=== PATIENT | female | born 1970 | race Caucasian/White ===

== ENCOUNTER 2019-01-29 18:17 | Inpatient (IN) | payer MEDICAID, OTHER ==
[~2019-01-29] VITALS: Ht 152.4 cm; Wt 46.3 kg
[~2019-01-29 18:17] MED LIST: CARB100T4; DOCU-150; FERR-63; GLYC1TAB11; LEVO75TA7; MULT-876; OLAN5TAB3; VITAMIN C
[2019-01-29] MEDS ORDERED: ONDANSETRON HCL 4MG/2ML INJ IV STA (23:01)
[2019-01-29] MEDS ORDERED: SODIUM CHLORIDE 0.9% 1,000 ML IV ONE (23:01)
[2019-01-29] MEDS ORDERED: MIDAZOLAM HCL 2 MG/2 ML VIAL IV ONE (23:15)
[2019-01-29 23:39] LABS: BASOPHILS % 0.9 % (0.0-2.0); EOSINOPHILS % 3.5 % (0.0-5.0); HEMATOCRIT. 39.3 % (36.0-48.0); HEMOGLOBIN. 13.2 g/dL (12.0-16.0); LYMPHOCYTES % 12.9 % (20.0-50.0); MEAN CORPUSCULAR HEMOGLOBIN 32.3 pg (28.0-32.0); MEAN CORPUSCULAR VOLUME 96.5 fL (81.0-99.0); MEAN PLATELET VOLUME 9.6 fl (7.4-10.4); MONOCYTES % 6.1 % (2.0-8.0); NEUTROPHILS % 76.6 % (40.0-76.0); PLATELET 288 x1000/uL (130-400); RED BLOOD CELL COUNT 4.07 mill/uL (4.2-5.4); RED CELL DISTRIBUTION WIDTH 13.8 % (11.6-14.6)
[2019-01-29 23:46] LABS: CHLORIDE 108 mEq/L (98-107)
[2019-01-30 00:02] LABS: HCG SCREEN NEGATIVE
[2019-01-30 00:45] LABS: CLARITY URINE CLEAR (CLEAR); COLOR URINE DARK YELLOW (YELLOW); KETONES URINE NEGATIVE (NEGATIVE); LEUKOCYTE ESTERASE URINE TRACE (NEGATIVE); NITRITE URINE NEGATIVE (NEGATIVE); OCCULT BLOOD URINE 2+ (NEGATIVE); PH URINE 6.5 (4.5-8.0); PROTEIN URINE TRACE (NEGATIVE); UROBILINOGEN URINE 0.2 E.U./dL (0.2-1.0)
[2019-01-30] MEDS ORDERED: NA PHOS,M-B/NA PHOS,DI-BA ENEMA 118ML PR ONE ×2 (02:00→10:45)
[2019-01-30] MEDS ORDERED: WARF6TAB22 PO (03:20)
[2019-01-30] MEDS ORDERED: WARF7.5T22 PO (03:20)
[2019-01-30] MEDS ORDERED: CLAR10 PO (03:20)
[2019-01-30 04:42] VITALS: BP 102/67
[2019-01-30] MEDS ORDERED: LACTULOSE 20G/30ML UDC PO PRN (05:30)
[2019-01-30] MEDS: LEVOTHYROXINE SODIUM 75MCG TABLET PO SCH (06:43)
[2019-01-30 08:00] VITALS: BP 121/70
[2019-01-30] MEDS ORDERED: ENOXAPARIN 30MG/0.3ML SYR SUBCUT SCH (09:00)
[2019-01-30 09:16] LABS: BASOPHILS % 1.3 % (0.0-2.0); EOSINOPHILS % 4.7 % (0.0-5.0); HEMATOCRIT. 33.2 % (36.0-48.0); HEMOGLOBIN. 11.1 g/dL (12.0-16.0); LYMPHOCYTES % 16.5 % (20.0-50.0); MEAN CORPUSCULAR HEMOGLOBIN 32.4 pg (28.0-32.0); MEAN CORPUSCULAR VOLUME 96.9 fL (81.0-99.0); MEAN PLATELET VOLUME 9.5 fl (7.4-10.4); MONOCYTES % 6.8 % (2.0-8.0); NEUTROPHILS % 70.7 % (40.0-76.0); PLATELET 241 x1000/uL (130-400); RED BLOOD CELL COUNT 3.42 mill/uL (4.2-5.4); RED CELL DISTRIBUTION WIDTH 13.9 % (11.6-14.6)
[2019-01-30] MEDS: DOCUSATE SODIUM 100MG CAPSULE PO SCH ×2 (09:23→17:00)
[2019-01-30 09:25] LABS: INR 3.4; PARTIAL THROMBOPLASTIN TIME 48.3 sec (23.4-31.0); PROTHROMBIN TIME 33.3 sec (9.6-11.0)
[2019-01-30] MEDS: SODIUM CHLORIDE 0.9% 1,000 ML IV SCH (09:25)
[2019-01-30 10:00] LABS: CHLORIDE 114 mEq/L (98-107)
[2019-01-30 10:12] LABS: LDL CHOLESTEROL 61 mg/dL (5-100)
[2019-01-30 10:14] LABS: HDL CHOLESTEROL 41 mg/dL (40-59)
[2019-01-30 12:00] VITALS: BP 117/72
[2019-01-30] MEDS: LACTULOSE 20G/30ML UDC PO SCH ×3 (14:00→22:00)
[2019-01-30] MEDS: MULTIVITAMINS,THER W-MINERALS TABLET PO SCH (14:22)
[2019-01-30 16:00] VITALS: BP 116/55
[2019-01-30 20:00] VITALS: BP 118/67
[2019-01-31] VITALS: BP 112/56
[2019-01-31] MEDS: SODIUM CHLORIDE 0.9% 1,000 ML IV SCH (03:13)
[2019-01-31 04:00] VITALS: BP 107/53
[2019-01-31] MEDS: LEVOTHYROXINE SODIUM 75MCG TABLET PO SCH (06:55)
[2019-01-31] MEDS: LACTULOSE 20G/30ML UDC PO SCH ×2 (06:55→13:18)
[2019-01-31 07:14] LABS: INR 2.1; PROTHROMBIN TIME 21.2 sec (9.6-11.0)
[2019-01-31 07:36] LABS: FOLIC ACID (FOLATE) SERUM >20 ng/mL ng/mL (>5.38)
[2019-01-31 07:44] LABS: TOTAL IRON BINDING CAPACITY 175 ug/dL (250-450)
[2019-01-31 07:48] LABS: VITAMIN B12 SERUM 913 pg/mL (211-911)
[2019-01-31 07:55] LABS: FERRITIN 25 ng/mL (10-291)
[2019-01-31 08:00] VITALS: BP 122/68
[2019-01-31] MEDS: MULTIVITAMINS,THER W-MINERALS TABLET PO SCH (09:30)
[2019-01-31] MEDS: DOCUSATE SODIUM 100MG CAPSULE PO SCH (09:30)
[2019-01-31] MEDS: LORATADINE 10MG TABLET PO SCH (09:40)
[2019-01-31 11:41] LABS: HEMATOCRIT. 33.3 % (36.0-48.0); HEMOGLOBIN. 11.1 g/dL (12.0-16.0); MEAN CORPUSCULAR HEMOGLOBIN 31.9 pg (28.0-32.0); MEAN CORPUSCULAR VOLUME 95.9 fL (81.0-99.0); MEAN PLATELET VOLUME 9.5 fl (7.4-10.4); PLATELET 220 x1000/uL (130-400); RED BLOOD CELL COUNT 3.47 mill/uL (4.2-5.4); RED CELL DISTRIBUTION WIDTH 13.8 % (11.6-14.6)
[2019-01-31 12:00] VITALS: BP 128/67
[2019-01-31 12:22] LABS: CHLORIDE 115 mEq/L (98-107)
[2019-01-31 12:28] LABS: PHOSPHORUS 1.9 mg/dL (2.5-4.9)
[2019-01-31 12:58] LABS: PLATELET ESTIMATE NORMAL
[2019-01-31] MEDS: DOCUSATE SODIUM SUGAR FREE 100MG/10ML UDC NG SCH ×2 (13:18→18:36)
[2019-01-31] MEDS: SODIUM CHLORIDE 0.45% 1,000 ML IV SCH (15:04)
[2019-01-31] MEDS ORDERED: POTASSIUM PHOS,M-BASIC-D-BASIC 15 MMOL in DEXT 5% WATER 245 ML IV NR ×2 (15:30→18:15)
[2019-01-31 16:00] VITALS: BP 127/74
[2019-01-31] MEDS ORDERED: WARFARIN SODIUM 5MG TABLET PO SCH (18:00)
[2019-01-31] MEDS: CARBAMAZEPINE 200MG TABLET PO SCH (18:33)
[2019-01-31 20:00] VITALS: BP 100/53
[2019-02-01] VITALS: BP 111/63
[2019-02-01] MEDS: LACTULOSE 20G/30ML UDC PO SCH ×4 (00:51→21:39)
[2019-02-01 04:00] VITALS: BP 118/61
[2019-02-01] MEDS: LEVOTHYROXINE SODIUM 75MCG TABLET PO SCH (06:49)
[2019-02-01 07:23] LABS: BASOPHILS % 0.7 % (0.0-2.0); EOSINOPHILS % 2.5 % (0.0-5.0); HEMATOCRIT. 31.5 % (36.0-48.0); HEMOGLOBIN. 10.7 g/dL (12.0-16.0); LYMPHOCYTES % 20.3 % (20.0-50.0); MEAN CORPUSCULAR HEMOGLOBIN 32.6 pg (28.0-32.0); MEAN CORPUSCULAR VOLUME 96.4 fL (81.0-99.0); MEAN PLATELET VOLUME 9.9 fl (7.4-10.4); MONOCYTES % 7.1 % (2.0-8.0); NEUTROPHILS % 69.4 % (40.0-76.0); PLATELET 209 x1000/uL (130-400); RED BLOOD CELL COUNT 3.27 mill/uL (4.2-5.4); RED CELL DISTRIBUTION WIDTH 13.6 % (11.6-14.6)
[2019-02-01 07:36] LABS: CHLORIDE 112 mEq/L (98-107)
[2019-02-01 07:44] LABS: PHOSPHORUS 2.1 mg/dL (2.5-4.9)
[2019-02-01 07:55] LABS: INR 1.4; PROTHROMBIN TIME 14.6 sec (9.6-11.0)
[2019-02-01 08:54] VITALS: BP 144/71
[2019-02-01] MEDS ORDERED: CARBAMAZEPINE 200MG TABLET PO SCH (09:00)
[2019-02-01] MEDS: DOCUSATE SODIUM SUGAR FREE 100MG/10ML UDC NG SCH ×2 (09:06→18:03)
[2019-02-01] MEDS: LORATADINE 10MG TABLET PO SCH (09:06)
[2019-02-01] MEDS: MULTIVITAMINS,THER W-MINERALS TABLET PO SCH (09:06)
[2019-02-01] MEDS: CARBAMAZEPINE 200MG TABLET PO SCH ×2 (09:06→18:06)
[2019-02-01] MEDS ORDERED: POTASSIUM PHOS,M-BASIC-D-BASIC 15 MMOL in DEXT 5% WATER 245 ML IV SCH (11:00)
[2019-02-01] MEDS: SODIUM CHLORIDE 0.45% 1,000 ML IV SCH (11:29)
[2019-02-01 12:00] VITALS: BP 135/71
[2019-02-01 16:00] VITALS: BP 133/68
[2019-02-01] MEDS ORDERED: WARFARIN SODIUM 7.5MG TABLET PO NR (18:00)
[2019-02-01 20:00] VITALS: BP 117/74
[2019-02-02] VITALS: BP 120/70
[2019-02-02 04:00] VITALS: BP 116/50
[2019-02-02] MEDS: SODIUM CHLORIDE 0.45% 1,000 ML IV SCH (05:44)
[2019-02-02 06:17] LABS: BASOPHILS % 0.8 % (0.0-2.0); EOSINOPHILS % 2.7 % (0.0-5.0); HEMATOCRIT. 31.8 % (36.0-48.0); HEMOGLOBIN. 10.9 g/dL (12.0-16.0); LYMPHOCYTES % 12.4 % (20.0-50.0); MEAN CORPUSCULAR HEMOGLOBIN 32.4 pg (28.0-32.0); MEAN CORPUSCULAR VOLUME 94.5 fL (81.0-99.0); MONOCYTES % 6.6 % (2.0-8.0); NEUTROPHILS % 77.5 % (40.0-76.0); PLATELET 199 x1000/uL (130-400); RED BLOOD CELL COUNT 3.37 mill/uL (4.2-5.4); RED CELL DISTRIBUTION WIDTH 13.4 % (11.6-14.6)
[2019-02-02 06:21] LABS: INR 1.9
[2019-02-02 06:24] LABS: CHLORIDE 110 mEq/L (98-107)
[2019-02-02 06:30] LABS: PHOSPHORUS 2.1 mg/dL (2.5-4.9)
[2019-02-02] MEDS: LEVOTHYROXINE SODIUM 75MCG TABLET PO SCH (06:37)
[2019-02-02] MEDS: LACTULOSE 20G/30ML UDC PO SCH ×2 (06:37→15:27)
[2019-02-02 08:00] VITALS: BP 103/55
[2019-02-02] MEDS: DOCUSATE SODIUM SUGAR FREE 100MG/10ML UDC NG SCH ×2 (08:52→17:41)
[2019-02-02] MEDS: CARBAMAZEPINE 200MG TABLET PO SCH ×2 (08:53→17:42)
[2019-02-02] MEDS: LORATADINE 10MG TABLET PO SCH (08:53)
[2019-02-02] MEDS: MULTIVITAMINS,THER W-MINERALS TABLET PO SCH (08:53)
[2019-02-02 12:00] VITALS: BP 115/56
[2019-02-02] MEDS ORDERED: POLY119P2 MT (12:07)
[2019-02-02 16:00] VITALS: BP 115/52
[2019-02-02 17:53] VITALS: BP 125/67
[2019-02-02] MEDS ORDERED: WARFARIN SODIUM 5MG TABLET PO NR (18:00)
== END 2019-02-02 19:16 | disposition home or self-care (01) | DRG 247 ==
LOC: ER 18:20 → EDBEDREQTM 01-30 03:01 → EDBEDREQ 01-30 03:01 → ENRESERV 01-30 03:43 → 6EST 01-30 04:13
PROVIDERS: ADMIT Internal Medicine; ATTEND Internal Medicine
DX: K56.41 Fecal impaction (principal); N17.9 Acute kidney failure, unspecified; E87.0 Hyperosmolality and hypernatremia; E44.1 Mild protein-calorie malnutrition; E83.39 Other disorders of phosphorus metabolism; E83.42 Hypomagnesemia; E03.9 Hypothyroidism, unspecified; G40.909 Epilepsy, unspecified, not intractable, without status epilepticus; F79 Unspecified intellectual disabilities; D64.9 Anemia, unspecified; R00.0 Tachycardia, unspecified; R31.9 Hematuria, unspecified; G80.9 Cerebral palsy, unspecified; R33.8 Other retention of urine; R79.1 Abnormal coagulation profile; Z79.01 Long term (current) use of anticoagulants; Z86.718 Personal history of other venous thrombosis and embolism; Z82.49 Family history of ischemic heart disease and other diseases of the circulatory system; Z79.899 Other long term (current) drug therapy
CPT/HCPCS: 36415; 71045; 74018; 74176; 80048; 80053; 80061; 81003; 82270; 82607; 82728; 82746; 83540; 83550; 83605; 83735; 84100; 84443; 84703; 85025; 92610; 93970; 96361; 96374; 96375; 99285; J1650; J2250; J2405; J3490; J7030; J7060; A4315

== ENCOUNTER 2019-03-06 20:01 | Inpatient (IN) | payer MEDICAID, OTHER ==
[~2019-03-06] VITALS: Ht 160 cm; Wt 46.8 kg
[~2019-03-06 20:01] MED LIST changes: -CARB100T4; +CLAR10 PO; -FERR-63; -GLYC1TAB11; -OLAN5TAB3; +POLY119P2 MT; +WARF6TAB22 PO
[2019-03-06] MEDS ORDERED: ONDANSETRON HCL 4MG/2ML INJ IV STA (21:17)
[2019-03-06] MEDS ORDERED: SODIUM CHLORIDE 0.9% 1,000 ML IV ONE (21:17)
[2019-03-06] MEDS ORDERED: NA PHOS,M-B/NA PHOS,DI-BA ENEMA 118ML PR ONE (22:45)
[2019-03-06 22:59] LABS: CLARITY URINE TURBID (CLEAR); COLOR URINE DARK YELLOW (YELLOW); KETONES URINE TRACE (NEGATIVE); LEUKOCYTE ESTERASE URINE TRACE (NEGATIVE); NITRITE URINE NEGATIVE (NEGATIVE); OCCULT BLOOD URINE NEGATIVE (NEGATIVE); PH URINE 6.5 (4.5-8.0); PROTEIN URINE TRACE (NEGATIVE); SPECIFIC GRAVITY URINE 1.023 (1.005-1.030)
[2019-03-06 23:01] LABS: BASOPHILS % 0.7 % (0.0-2.0); HEMOGLOBIN. 12.3 g/dL (12.0-16.0); LYMPHOCYTES % 7.6 % (20.0-50.0); MEAN CORPUSCULAR HEMOGLOBIN 31.7 pg (28.0-32.0); MEAN CORPUSCULAR VOLUME 95.6 fL (81.0-99.0); MEAN PLATELET VOLUME 9.8 fl (7.4-10.4); NEUTROPHILS % 86.7 % (40.0-76.0); PLATELET 373 x1000/uL (130-400); RED BLOOD CELL COUNT 3.86 mill/uL (4.2-5.4); RED CELL DISTRIBUTION WIDTH 13.6 % (11.6-14.6)
[2019-03-06 23:04] LABS: CHLORIDE 105 mEq/L (98-107)
[2019-03-07 03:00] VITALS: BP 124/84
[2019-03-07] MEDS ORDERED: TOPUD PO (04:12)
[2019-03-07] MEDS ORDERED: LEVO75TA PO (04:12)
[2019-03-07] MEDS ORDERED: WARF7.5T22 PO (04:12)
[2019-03-07] MEDS ORDERED: OLAN5TAB3 PO (04:12)
[2019-03-07] MEDS ORDERED: DIPH25CA83 PO (04:12)
[2019-03-07] MEDS ORDERED: GLYC1TAB11 PO (04:12)
[2019-03-07] MEDS ORDERED: D-ME473S8 MT (04:12)
[2019-03-07] MEDS ORDERED: FERR-54 PO (04:12)
[2019-03-07] MEDS ORDERED: CARB100T4 PO (04:12)
[2019-03-07] MEDS ORDERED: MOM MT (04:12)
[2019-03-07] MEDS ORDERED: ONDA4TAB5 PO (04:12)
[2019-03-07 05:07] VITALS: BP 124/84
[2019-03-07 08:00] VITALS: BP 125/60
[2019-03-07] MEDS ORDERED: BISACODYL 10MG SUPP PR PRN (08:00)
[2019-03-07] MEDS ORDERED: ONDANSETRON HCL 4MG/2ML INJ IV PRN (08:00)
[2019-03-07] MEDS: SODIUM CHLORIDE 0.9% 1,000 ML IV SCH ×2 (08:00→21:20)
[2019-03-07] MEDS ORDERED: SORBITOL 70% SOLN 30ML PO NR (08:00)
[2019-03-07 12:00] VITALS: BP 148/87
[2019-03-07 16:00] VITALS: BP 120/62
[2019-03-07 20:00] VITALS: BP 112/50
[2019-03-07 21:15] LABS: HEMATOCRIT 28.9 % (36.0-48.0); HEMOGLOBIN 9.7 g/dL (12.0-16.0)
[2019-03-08] VITALS: BP 129/83
[2019-03-08 04:00] VITALS: BP 113/61
[2019-03-08] MEDS: SODIUM CHLORIDE 0.9% 1,000 ML IV SCH (05:13)
[2019-03-08 08:00] VITALS: BP 103/60
[2019-03-08] MEDS: DEXT 5%/0.45% NACL 1000ML 1,000 ML IV SCH (12:45)
[2019-03-08 16:00] VITALS: BP 99/67
[2019-03-08 16:27] LABS: CHLORIDE 114 mEq/L (98-107)
[2019-03-08 16:35] LABS: INR 2.1; PROTHROMBIN TIME 21.3 sec (9.6-11.0)
[2019-03-08 17:10] LABS: BASOPHILS % 1.2 % (0.0-2.0); EOSINOPHILS % 0.9 % (0.0-5.0); HEMATOCRIT. 31.3 % (36.0-48.0); HEMOGLOBIN. 10.4 g/dL (12.0-16.0); LYMPHOCYTES % 24.2 % (20.0-50.0); MEAN CORPUSCULAR HEMOGLOBIN 32.3 pg (28.0-32.0); MEAN CORPUSCULAR VOLUME 96.8 fL (81.0-99.0); MEAN PLATELET VOLUME 9.1 fl (7.4-10.4); MONOCYTES % 7.5 % (2.0-8.0); NEUTROPHILS % 66.2 % (40.0-76.0); PLATELET 297 x1000/uL (130-400); RED BLOOD CELL COUNT 3.23 mill/uL (4.2-5.4); RED CELL DISTRIBUTION WIDTH 13.6 % (11.6-14.6)
[2019-03-08] MEDS: OLANZAPINE 5MG TABLET PO SCH (18:30)
[2019-03-08] MEDS: ACETAMINOPHEN 325MG TABLET PO PRN (18:31)
[2019-03-08] MEDS ORDERED: SORBITOL 70% SOLN 30ML PO NR (18:45)
[2019-03-08 20:00] VITALS: BP 108/76
[2019-03-08] MEDS: GLYCOPYRROLATE 1MG TABLET PO SCH (20:53)
[2019-03-08] MEDS: CARBAMAZEPINE 100MG TABLET CHEW PO SCH (20:53)
[2019-03-09] VITALS (7 sets, daily range): BP systolic 119–172; BP diastolic 74–113
[2019-03-09] MEDS: DEXT 5%/0.45% NACL 1000ML 1,000 ML IV SCH ×2 (04:13→16:29)
[2019-03-09] MEDS: LEVOTHYROXINE SODIUM 75MCG TABLET PO SCH (07:13)
[2019-03-09 07:24] LABS: HEMATOCRIT. 35.9 % (36.0-48.0); HEMOGLOBIN. 11.8 g/dL (12.0-16.0); MEAN CORPUSCULAR HEMOGLOBIN 31.7 pg (28.0-32.0); MEAN CORPUSCULAR VOLUME 96.2 fL (81.0-99.0); MEAN PLATELET VOLUME 9.9 fl (7.4-10.4); PLATELET 453 x1000/uL (130-400); RED BLOOD CELL COUNT 3.73 mill/uL (4.2-5.4); RED CELL DISTRIBUTION WIDTH 13.7 % (11.6-14.6)
[2019-03-09 07:34] LABS: CHLORIDE 112 mEq/L (98-107)
[2019-03-09] MEDS: MORPHINE SULFATE 2 MG/ML CPJ (NOT FOR IM USE) IV PRN (08:42)
[2019-03-09] MEDS ORDERED: POLYETHYLENE GLYCOL 3350 (17GM) 1 DOSE PACK PO SCH (09:00)
[2019-03-09] MEDS: OLANZAPINE 5MG TABLET PO SCH ×3 (09:00→16:28)
[2019-03-09] MEDS: GLYCOPYRROLATE 1MG TABLET PO SCH ×2 (09:00→21:00)
[2019-03-09] MEDS: LORATADINE 10MG TABLET PO SCH (09:00)
[2019-03-09] MEDS: DOCUSATE SODIUM 250MG CAPSULE PO SCH (09:00)
[2019-03-09] MEDS: CARBAMAZEPINE 100MG TABLET CHEW PO SCH (09:00)
[2019-03-09] MEDS: PIPERACILLIN/TAZOBACTAM 3.375 G in DEXT 5% WATER 100 ML IV SCH ×3 (10:19→23:24)
[2019-03-09 13:04] LABS: NUCLEATED RED BLOOD CELLS 1 /100 WBC
[2019-03-09 13:05] LABS: PLATELET ESTIMATE SLIGHTLY INCREASED
[2019-03-09] MEDS ORDERED: NA PHOS,M-B/NA PHOS,DI-BA ENEMA 118ML PR NR (16:00)
[2019-03-09] MEDS ORDERED: PHYTONADIONE 10 MG in DEXTROSE 5% WATER 49 ML IV ONE (17:00)
[2019-03-09] MEDS: PANTOPRAZOLE SODIUM 40 MG/VIAL IV SCH (17:45)
[2019-03-09] MEDS ORDERED: CARBAMAZEPINE 100 MG/5 ML PO SCH (23:00)
[2019-03-09] MEDS: CARBAMAZEPINE 200MG/10ML UDC PO SCH (23:26)
[2019-03-10] VITALS (11 sets, daily range): BP systolic 105–131; BP diastolic 67–88
[2019-03-10] MEDS: PIPERACILLIN/TAZOBACTAM 3.375 G in DEXT 5% WATER 100 ML IV SCH ×4 (03:18→21:24)
[2019-03-10] MEDS: OLANZAPINE 5MG TABLET PO SCH ×3 (08:35→17:22)
[2019-03-10] MEDS: DEXT 5%/0.45% NACL 1000ML 1,000 ML IV SCH ×2 (08:35→17:23)
[2019-03-10] MEDS: DOCUSATE SODIUM 250MG CAPSULE PO SCH (08:35)
[2019-03-10] MEDS: GLYCOPYRROLATE 1MG TABLET PO SCH ×2 (08:36→22:26)
[2019-03-10] MEDS: PANTOPRAZOLE SODIUM 40 MG/VIAL IV SCH ×2 (08:36→17:15)
[2019-03-10] MEDS: LEVOTHYROXINE SODIUM 75MCG TABLET PO SCH (08:36)
[2019-03-10] MEDS: LORATADINE 10MG TABLET PO SCH (08:36)
[2019-03-10] MEDS ORDERED: SORBITOL 70% SOLN 30ML PO NR (10:00)
[2019-03-10] MEDS ORDERED: MINERAL OIL ENEMA 133ML PR NR ×2 (10:15→22:00)
[2019-03-10 10:27] LABS: BASOPHILS % 0.6 % (0.0-2.0); EOSINOPHILS % 0.7 % (0.0-5.0); HEMATOCRIT. 30.8 % (36.0-48.0); HEMOGLOBIN. 10.6 g/dL (12.0-16.0); LYMPHOCYTES % 11.6 % (20.0-50.0); MEAN CORPUSCULAR HEMOGLOBIN 32.8 pg (28.0-32.0); MEAN CORPUSCULAR VOLUME 94.9 fL (81.0-99.0); MONOCYTES % 8.4 % (2.0-8.0); NEUTROPHILS % 78.7 % (40.0-76.0); PLATELET 298 x1000/uL (130-400); RED BLOOD CELL COUNT 3.24 mill/uL (4.2-5.4); RED CELL DISTRIBUTION WIDTH 13.3 % (11.6-14.6)
[2019-03-10 10:35] LABS: INR 1.1
[2019-03-10 11:19] LABS: CHLORIDE 107 mEq/L (98-107)
[2019-03-10] MEDS ORDERED: POTASSIUM CHLORIDE INJ 40 MEQ in DEXT 5% WATER 500 ML IV SCH (13:00)
[2019-03-10] MEDS: CARBAMAZEPINE 200MG/10ML UDC PO SCH ×2 (14:03→22:25)
[2019-03-10] MEDS ORDERED: POTASSIUM CHLORIDE INJ 40 MEQ in DEXT 5% WATER 500 ML IV NR (21:00)
[2019-03-10] MEDS ORDERED: NACL IV SCH (22:00)
[2019-03-10] MEDS ORDERED: POTASSIUM ACETATE IV SCH (22:00)
[2019-03-10] MEDS ORDERED: DEXT IV SCH (22:00)
[2019-03-10] MEDS: LACTULOSE 20G/30ML UDC PO SCH (22:25)
[2019-03-10] MEDS ORDERED: MAGNESIUM CITRATE 300ML SOLUTION PO NR (23:00)
[2019-03-11] VITALS (7 sets, daily range): BP systolic 119–144; BP diastolic 46–93
[2019-03-11] MEDS ORDERED: DEXT IV SCH (01:30)
[2019-03-11] MEDS ORDERED: NACL IV SCH (01:30)
[2019-03-11] MEDS ORDERED: POTASSIUM ACETATE IV SCH (01:30)
[2019-03-11] MEDS: PIPERACILLIN/TAZOBACTAM 3.375 G in DEXT 5% WATER 100 ML IV SCH ×4 (03:00→21:16)
[2019-03-11] MEDS: LACTULOSE 20G/30ML UDC PO SCH ×3 (05:59→21:17)
[2019-03-11] MEDS: OLANZAPINE 5MG TABLET PO SCH ×3 (08:03→16:49)
[2019-03-11] MEDS: DOCUSATE SODIUM 250MG CAPSULE PO SCH (08:03)
[2019-03-11] MEDS: GLYCOPYRROLATE 1MG TABLET PO SCH ×2 (08:03→21:16)
[2019-03-11] MEDS: LEVOTHYROXINE SODIUM 75MCG TABLET PO SCH (08:03)
[2019-03-11] MEDS: LORATADINE 10MG TABLET PO SCH (08:03)
[2019-03-11] MEDS: PANTOPRAZOLE SODIUM 40 MG/VIAL IV SCH ×2 (08:05→16:49)
[2019-03-11 08:18] LABS: BASOPHILS % 0.4 % (0.0-2.0); EOSINOPHILS % 0.4 % (0.0-5.0); HEMATOCRIT. 31.1 % (36.0-48.0); HEMOGLOBIN. 10.6 g/dL (12.0-16.0); LYMPHOCYTES % 10.5 % (20.0-50.0); MEAN CORPUSCULAR HEMOGLOBIN 32.1 pg (28.0-32.0); MEAN CORPUSCULAR VOLUME 94.2 fL (81.0-99.0); MEAN PLATELET VOLUME 9.2 fl (7.4-10.4); NEUTROPHILS % 78.7 % (40.0-76.0); PLATELET 305 x1000/uL (130-400); RED CELL DISTRIBUTION WIDTH 13.4 % (11.6-14.6)
[2019-03-11 08:22] LABS: CHLORIDE 106 mEq/L (98-107)
[2019-03-11] MEDS: CARBAMAZEPINE 200MG/10ML UDC PO SCH ×2 (09:50→21:16)
[2019-03-11] MEDS ORDERED: MINERAL OIL ENEMA 133ML PR SCH (10:00)
[2019-03-11] MEDS: MORPHINE SULFATE 2 MG/ML CPJ (NOT FOR IM USE) IV PRN (10:58)
[2019-03-11] MEDS ORDERED: SORBITOL 70% SOLN 30ML PO SCH (11:00)
[2019-03-11 17:11] LABS: HEMATOCRIT 33.9 % (36.0-48.0); HEMOGLOBIN 11.3 g/dL (12.0-16.0)
[2019-03-11 20:42] LABS: HEMATOCRIT 33.8 % (36.0-48.0); HEMOGLOBIN 11.3 g/dL (12.0-16.0)
[2019-03-12] VITALS (7 sets, daily range): BP systolic 117–131; BP diastolic 57–77
[2019-03-12] MEDS: PIPERACILLIN/TAZOBACTAM 3.375 G in DEXT 5% WATER 100 ML IV SCH ×4 (04:11→21:19)
[2019-03-12] MEDS: LACTULOSE 20G/30ML UDC PO SCH ×2 (05:02→14:12)
[2019-03-12 06:55] LABS: BASOPHILS % 0.6 % (0.0-2.0); EOSINOPHILS % 2.2 % (0.0-5.0); HEMATOCRIT. 32.2 % (36.0-48.0); HEMOGLOBIN. 10.8 g/dL (12.0-16.0); LYMPHOCYTES % 12.2 % (20.0-50.0); MEAN CORPUSCULAR HEMOGLOBIN 31.8 pg (28.0-32.0); MEAN CORPUSCULAR VOLUME 95.2 fL (81.0-99.0); MEAN PLATELET VOLUME 8.6 fl (7.4-10.4); MONOCYTES % 9.1 % (2.0-8.0); NEUTROPHILS % 75.9 % (40.0-76.0); PLATELET 319 x1000/uL (130-400); RED BLOOD CELL COUNT 3.38 mill/uL (4.2-5.4); RED CELL DISTRIBUTION WIDTH 13.4 % (11.6-14.6)
[2019-03-12 07:13] LABS: CHLORIDE 111 mEq/L (98-107)
[2019-03-12] MEDS: OLANZAPINE 5MG TABLET PO SCH ×3 (09:16→18:04)
[2019-03-12] MEDS: PANTOPRAZOLE SODIUM 40 MG/VIAL IV SCH ×2 (09:16→18:05)
[2019-03-12] MEDS: CARBAMAZEPINE 200MG/10ML UDC PO SCH ×2 (09:16→21:18)
[2019-03-12] MEDS: LEVOTHYROXINE SODIUM 75MCG TABLET PO SCH (09:17)
[2019-03-12] MEDS: LORATADINE 10MG TABLET PO SCH (09:17)
[2019-03-12] MEDS: DOCUSATE SODIUM 250MG CAPSULE PO SCH (09:17)
[2019-03-12] MEDS: GLYCOPYRROLATE 1MG TABLET PO SCH ×2 (09:53→21:18)
[2019-03-12] MEDS ORDERED: SORBITOL 70% SOLN 30ML PO SCH (15:00)
[2019-03-12] MEDS ORDERED: MINERAL OIL ENEMA 133ML PR SCH (16:00)
[2019-03-12] MEDS: ACETAMINOPHEN 325MG TABLET PO PRN (18:04)
[2019-03-13] VITALS (9 sets, daily range): BP systolic 115–151; BP diastolic 72–120
[2019-03-13] MEDS: PIPERACILLIN/TAZOBACTAM 3.375 G in DEXT 5% WATER 100 ML IV SCH ×4 (05:46→21:20)
[2019-03-13] MEDS: CARBAMAZEPINE 200MG/10ML UDC PO SCH ×2 (08:17→21:23)
[2019-03-13] MEDS: PANTOPRAZOLE SODIUM 40 MG/VIAL IV SCH ×2 (08:17→16:07)
[2019-03-13] MEDS: OLANZAPINE 5MG TABLET PO SCH ×3 (08:18→21:22)
[2019-03-13] MEDS: DOCUSATE SODIUM 250MG CAPSULE PO SCH (08:18)
[2019-03-13] MEDS: LORATADINE 10MG TABLET PO SCH (08:18)
[2019-03-13] MEDS: GLYCOPYRROLATE 1MG TABLET PO SCH ×2 (08:18→21:22)
[2019-03-13] MEDS: LEVOTHYROXINE SODIUM 75MCG TABLET PO SCH (08:18)
[2019-03-13] MEDS: ACETAMINOPHEN 325MG TABLET PO PRN ×2 (08:23→21:22)
[2019-03-13] MEDS ORDERED: OLANZAPINE 5MG TABLET PO SCH (19:00)
[2019-03-13] MEDS ORDERED: SORBITOL 70% SOLN 30ML PO NR ×2 (19:00→20:00)
[2019-03-14] VITALS (11 sets, daily range): BP systolic 87–156; BP diastolic 56–86
[2019-03-14] MEDS: PIPERACILLIN/TAZOBACTAM 3.375 G in DEXT 5% WATER 100 ML IV SCH ×4 (03:56→21:32)
[2019-03-14] MEDS: CARBAMAZEPINE 200MG/10ML UDC PO SCH ×2 (09:27→21:33)
[2019-03-14] MEDS: LORATADINE 10MG TABLET PO SCH (09:27)
[2019-03-14] MEDS: DOCUSATE SODIUM 250MG CAPSULE PO SCH (09:27)
[2019-03-14] MEDS: LEVOTHYROXINE SODIUM 75MCG TABLET PO SCH (09:27)
[2019-03-14] MEDS: GLYCOPYRROLATE 1MG TABLET PO SCH ×2 (09:27→21:33)
[2019-03-14] MEDS: PANTOPRAZOLE SODIUM 40 MG/VIAL IV SCH ×2 (09:27→17:50)
[2019-03-14] MEDS: OLANZAPINE 5MG TABLET PO SCH ×3 (09:28→17:50)
[2019-03-14 10:55] LABS: BASOPHILS % 1.5 % (0.0-2.0); EOSINOPHILS % 5.7 % (0.0-5.0); HEMATOCRIT. 32.5 % (36.0-48.0); HEMOGLOBIN. 11.1 g/dL (12.0-16.0); LYMPHOCYTES % 19.1 % (20.0-50.0); MEAN CORPUSCULAR HEMOGLOBIN 31.8 pg (28.0-32.0); MEAN CORPUSCULAR VOLUME 93.4 fL (81.0-99.0); MEAN PLATELET VOLUME 8.5 fl (7.4-10.4); MONOCYTES % 10.3 % (2.0-8.0); NEUTROPHILS % 63.4 % (40.0-76.0); PLATELET 324 x1000/uL (130-400); RED BLOOD CELL COUNT 3.48 mill/uL (4.2-5.4); RED CELL DISTRIBUTION WIDTH 13.3 % (11.6-14.6)
[2019-03-14 11:01] LABS: CHLORIDE 102 mEq/L (98-107)
[2019-03-14] MEDS ORDERED: SORBITOL 70% SOLN 30ML PO NR (16:30)
[2019-03-14] MEDS ORDERED: MINERAL OIL ENEMA 133ML PR NR (18:00)
[2019-03-15] VITALS (8 sets, daily range): BP systolic 100–130; BP diastolic 50–65
[2019-03-15] MEDS: PIPERACILLIN/TAZOBACTAM 3.375 G in DEXT 5% WATER 100 ML IV SCH ×4 (02:53→22:20)
[2019-03-15] MEDS: PANTOPRAZOLE SODIUM 40 MG/VIAL IV SCH ×2 (09:00→17:52)
[2019-03-15] MEDS: CARBAMAZEPINE 200MG/10ML UDC PO SCH ×2 (09:00→22:20)
[2019-03-15] MEDS: GLYCOPYRROLATE 1MG TABLET PO SCH ×2 (09:01→22:20)
[2019-03-15] MEDS: DOCUSATE SODIUM 250MG CAPSULE PO SCH (09:01)
[2019-03-15] MEDS: LORATADINE 10MG TABLET PO SCH (09:01)
[2019-03-15] MEDS: LEVOTHYROXINE SODIUM 75MCG TABLET PO SCH (09:01)
[2019-03-15] MEDS: OLANZAPINE 5MG TABLET PO SCH ×3 (09:01→12:40)
[2019-03-15] MEDS ORDERED: MINERAL OIL ENEMA 133ML PR SCH ×2 (12:30→18:00)
[2019-03-15] MEDS ORDERED: SORBITOL 70% SOLN 30ML PO SCH (13:30)
[2019-03-15] MEDS: SODIUM CHLORIDE 0.9% 1,000 ML IV SCH (13:42)
[2019-03-15] MEDS ORDERED: DOCUSATE SODIUM 250MG CAPSULE PO SCH (17:00)
[2019-03-15] MEDS: DOCUSATE SODIUM SUGAR FREE 100MG/10ML UDC NG SCH (17:56)
[2019-03-15] MEDS: BISACODYL 10MG SUPP PR SCH (22:20)
[2019-03-16] VITALS (8 sets, daily range): BP systolic 106–135; BP diastolic 51–77
[2019-03-16] MEDS: PIPERACILLIN/TAZOBACTAM 3.375 G in DEXT 5% WATER 100 ML IV SCH ×4 (03:49→21:11)
[2019-03-16 06:55] LABS: CHLORIDE 103 mEq/L (98-107)
[2019-03-16 08:52] LABS: BASOPHILS % 0.5 % (0.0-2.0); HEMATOCRIT. 31.9 % (36.0-48.0); HEMOGLOBIN. 10.7 g/dL (12.0-16.0); MEAN CORPUSCULAR HEMOGLOBIN 31.3 pg (28.0-32.0); MEAN CORPUSCULAR VOLUME 92.9 fL (81.0-99.0); MEAN PLATELET VOLUME 9.1 fl (7.4-10.4); MONOCYTES % 9.9 % (2.0-8.0); NEUTROPHILS % 60.6 % (40.0-76.0); PLATELET 297 x1000/uL (130-400); RED BLOOD CELL COUNT 3.43 mill/uL (4.2-5.4); RED CELL DISTRIBUTION WIDTH 13.5 % (11.6-14.6)
[2019-03-16] MEDS: CARBAMAZEPINE 200MG/10ML UDC PO SCH ×2 (08:57→21:11)
[2019-03-16] MEDS: LEVOTHYROXINE SODIUM 75MCG TABLET PO SCH (08:59)
[2019-03-16] MEDS: LORATADINE 10MG TABLET PO SCH (08:59)
[2019-03-16] MEDS: GLYCOPYRROLATE 1MG TABLET PO SCH ×2 (09:00→21:11)
[2019-03-16] MEDS: BISACODYL 10MG SUPP PR SCH (09:00)
[2019-03-16] MEDS: PANTOPRAZOLE SODIUM 40 MG/VIAL IV SCH ×2 (09:01→18:10)
[2019-03-16] MEDS ORDERED: SORBITOL 70% SOLN 30ML PO NR (10:00)
[2019-03-16] MEDS: DOCUSATE SODIUM SUGAR FREE 100MG/10ML UDC NG SCH ×2 (10:24→18:10)
[2019-03-16] MEDS ORDERED: MINERAL OIL ENEMA 133ML PR NR (10:30)
[2019-03-16] MEDS: SODIUM CHLORIDE 0.9% 1,000 ML IV SCH (10:40)
[2019-03-17] VITALS (7 sets, daily range): BP systolic 101–128; BP diastolic 62–86
[2019-03-17] MEDS: SODIUM CHLORIDE 0.9% 1,000 ML IV SCH (05:41)
[2019-03-17 06:42] LABS: BASOPHILS % 0.6 % (0.0-2.0); EOSINOPHILS % 0.9 % (0.0-5.0); HEMATOCRIT. 32.6 % (36.0-48.0); LYMPHOCYTES % 10.4 % (20.0-50.0); MEAN CORPUSCULAR HEMOGLOBIN 31.4 pg (28.0-32.0); MEAN CORPUSCULAR VOLUME 92.9 fL (81.0-99.0); MEAN PLATELET VOLUME 8.4 fl (7.4-10.4); MONOCYTES % 11.6 % (2.0-8.0); NEUTROPHILS % 76.5 % (40.0-76.0); PLATELET 327 x1000/uL (130-400); RED BLOOD CELL COUNT 3.51 mill/uL (4.2-5.4); RED CELL DISTRIBUTION WIDTH 13.3 % (11.6-14.6)
[2019-03-17 06:53] LABS: CHLORIDE 105 mEq/L (98-107)
[2019-03-17] MEDS ORDERED: POTASSIUM CHLORIDE 20MEQ/PACKET NG NR (08:00)
[2019-03-17] MEDS: BISACODYL 10MG SUPP PR SCH (09:16)
[2019-03-17] MEDS: LORATADINE 10MG TABLET PO SCH (09:16)
[2019-03-17] MEDS: PANTOPRAZOLE SODIUM 40 MG/VIAL IV SCH ×2 (09:16→16:19)
[2019-03-17] MEDS: LEVOTHYROXINE SODIUM 75MCG TABLET PO SCH (09:16)
[2019-03-17] MEDS: GLYCOPYRROLATE 1MG TABLET PO SCH ×2 (09:16→21:59)
[2019-03-17] MEDS: CARBAMAZEPINE 200MG/10ML UDC PO SCH ×2 (09:17→21:26)
[2019-03-17] MEDS: DOCUSATE SODIUM SUGAR FREE 100MG/10ML UDC NG SCH ×2 (09:17→16:19)
[2019-03-17] MEDS ORDERED: SORBITOL 70% SOLN 30ML PO NR (10:30)
[2019-03-17] MEDS ORDERED: MINERAL OIL ENEMA 133ML PR NR (12:00)
[2019-03-17] MEDS ORDERED: SIMETHICONE 80MG TABLET CHEW NG PRN (12:15)
[2019-03-17] MEDS: METOCLOPRAMIDE HCL 10MG/2ML VIAL IV SCH (17:08)
[2019-03-17] MEDS ORDERED: POLYETHYLENE GLYCOL-ELECTROLYTE 4000ML NG NR (18:00)
[2019-03-18] VITALS (7 sets, daily range): BP systolic 92–111; BP diastolic 55–71
[2019-03-18] MEDS: SODIUM CHLORIDE 0.9% 1,000 ML IV SCH ×2 (00:56→22:45)
[2019-03-18] MEDS: METOCLOPRAMIDE HCL 10MG/2ML VIAL IV SCH ×4 (00:56→17:37)
[2019-03-18] MEDS: LEVOTHYROXINE SODIUM 75MCG TABLET PO SCH (08:28)
[2019-03-18] MEDS: BISACODYL 10MG SUPP PR SCH (08:28)
[2019-03-18] MEDS: LORATADINE 10MG TABLET PO SCH (08:28)
[2019-03-18] MEDS: DOCUSATE SODIUM SUGAR FREE 100MG/10ML UDC NG SCH ×2 (08:28→17:37)
[2019-03-18] MEDS: CARBAMAZEPINE 200MG/10ML UDC PO SCH ×2 (08:29→22:46)
[2019-03-18] MEDS: PANTOPRAZOLE SODIUM 40 MG/VIAL IV SCH ×2 (08:29→17:37)
[2019-03-18] MEDS: GLYCOPYRROLATE 1MG TABLET PO SCH ×2 (08:29→22:46)
[2019-03-18 09:25] LABS: CHLORIDE 117 mEq/L (98-107)
[2019-03-18] MEDS: POTASSIUM CHLORIDE 20MEQ/PACKET NG SCH ×3 (11:30→22:47)
[2019-03-19] VITALS (9 sets, daily range): BP systolic 99–134; BP diastolic 64–92
[2019-03-19] MEDS: METOCLOPRAMIDE HCL 10MG/2ML VIAL IV SCH ×4 (00:20→17:25)
[2019-03-19] MEDS: LEVOTHYROXINE SODIUM 75MCG TABLET PO SCH (08:46)
[2019-03-19] MEDS: BISACODYL 10MG SUPP PR SCH (08:46)
[2019-03-19] MEDS: PANTOPRAZOLE SODIUM 40 MG/VIAL IV SCH ×2 (08:46→17:25)
[2019-03-19] MEDS: LORATADINE 10MG TABLET PO SCH (08:46)
[2019-03-19] MEDS: DOCUSATE SODIUM SUGAR FREE 100MG/10ML UDC NG SCH ×2 (08:46→17:25)
[2019-03-19] MEDS: GLYCOPYRROLATE 1MG TABLET PO SCH ×2 (08:51→22:11)
[2019-03-19] MEDS: CARBAMAZEPINE 200MG/10ML UDC PO SCH ×2 (08:52→22:10)
[2019-03-19] MEDS ORDERED: SORBITOL 70% SOLN 30ML PO NR (12:30)
[2019-03-19 16:43] LABS: CHLORIDE 104 mEq/L (98-107)
[2019-03-20] VITALS (7 sets, daily range): BP systolic 106–116; BP diastolic 64–72
[2019-03-20] MEDS: METOCLOPRAMIDE HCL 10MG/2ML VIAL IV SCH ×3 (01:07→11:55)
[2019-03-20 06:29] LABS: CHLORIDE 102 mEq/L (98-107)
[2019-03-20] MEDS: GLYCOPYRROLATE 1MG TABLET PO SCH (08:08)
[2019-03-20] MEDS: LEVOTHYROXINE SODIUM 75MCG TABLET PO SCH (08:08)
[2019-03-20] MEDS: PANTOPRAZOLE SODIUM 40 MG/VIAL IV SCH (08:09)
[2019-03-20] MEDS: BISACODYL 10MG SUPP PR SCH (08:09)
[2019-03-20] MEDS: DOCUSATE SODIUM SUGAR FREE 100MG/10ML UDC NG SCH (08:09)
[2019-03-20] MEDS: LORATADINE 10MG TABLET PO SCH (08:09)
[2019-03-20] MEDS: CARBAMAZEPINE 200MG/10ML UDC PO SCH (08:13)
[2019-03-20] MEDS ORDERED: POTASSIUM CHLORIDE 20MEQ/PACKET PO SCH (09:00)
== END 2019-03-20 19:18 | disposition home or self-care (01) | DRG 247 ==
LOC: ER 20:01 → EDBEDREQTM 03-07 00:24 → EDBEDREQ 03-07 00:24 → EDBEDREQDT 03-07 00:24 → ENRESERV 03-07 01:45 → 6EST 03-07 02:54 → 5EST 03-09 13:10
PROVIDERS: ADMIT Internal Medicine; ATTEND Internal Medicine
DX: K56.41 Fecal impaction (principal); E43 Unspecified severe protein-calorie malnutrition; K59.39 Other megacolon; E86.0 Dehydration; G40.909 Epilepsy, unspecified, not intractable, without status epilepticus; G80.9 Cerebral palsy, unspecified; E03.9 Hypothyroidism, unspecified; N39.0 Urinary tract infection, site not specified; K44.9 Diaphragmatic hernia without obstruction or gangrene; K63.89 Other specified diseases of intestine; K62.5 Hemorrhage of anus and rectum; Z68.1 Body mass index [BMI] 19.9 or less, adult; Z86.718 Personal history of other venous thrombosis and embolism; Z95.828 Presence of other vascular implants and grafts; Z79.899 Other long term (current) drug therapy; Z91.018 Allergy to other foods; Z78.1 Physical restraint status
CPT/HCPCS: 36415; 70551; 71045; 74018; 74176; 80048; 80053; 81003; 82270; 83036; 84132; 85014; 85018; 85025; 92610; 93970; 96365; 99285; A6261; C1893; C9113; J2270; J2405; J2543; J2765; J3430; J3480; J3490; J7030; J7040; J7060

== ENCOUNTER 2019-09-05 20:32 | Inpatient (IN) | payer MEDICAID ==
[~2019-09-05] VITALS: Ht 162.6 cm; Wt 41.7 kg
[~2019-09-05 20:32] MED LIST changes: +CARB100T4 PO; +D-ME473S8 MT; +DIPH25CA83 PO; +FERR-54 PO; +GLYC1TAB11 PO; +LEVO75TA PO; +MOM MT; +OLAN5TAB3 PO; +ONDA4TAB5 PO; +TOPUD PO; +WARF7.5T22 PO
[2019-09-05] MEDS ORDERED: ONDANSETRON HCL 4MG/2ML INJ IV STA (21:13)
[2019-09-05] MEDS ORDERED: ACETAMINOPHEN 650MG SUPP PR STA (21:13)
[2019-09-05] MEDS ORDERED: SODIUM CHLORIDE 0.9% 1,000 ML IV ONE (21:13)
[2019-09-05] MEDS ORDERED: SODIUM CHLORIDE 0.9% 1000ML BAG (SEPSIS BOLUS) IV ONE (21:15)
[2019-09-05] MEDS ORDERED: VANCOMYCIN 1 G PREMIX 200 ML IV ONE (21:15)
[2019-09-05] MEDS ORDERED: PIPERACILLIN/TAZ 3.375G PREMIX 50 ML IV ONE (21:15)
[2019-09-05 22:03] LABS: BG BASE EXCESS 0.7 mmol/L (-2.0-2.0); BG CARBOXYHEMOGLOBIN 0.6 % (0.5-1.5); BG DEOXYHEMOGLOBIN 5.1 % (0.0-5.0); BG FRACTION INSPIRED OXYGEN 21; BG METHEMOGLOBIN 0.1 % (0.0-1.5); BG OXYGEN SATURATION 94.9 % (92.0-98.5); BG OXYHEMOGLOBIN 94.2 % (94.0-97.0); BG PCO2 38.9 mmHg (35.0-45.0); BG PH 7.426 (7.350-7.450); BG PO2 71.9 mmHg (75.0-100.0); BG SAMPLE SITE RIGHT RADIAL; BG TOTAL HEMOGLOBIN 12.9 g/dL (12.0-18.0); BG VENT MODE ROOM AIR
[2019-09-05 23:09] LABS: BASOPHILS % 0.6 % (0.0-2.0); EOSINOPHILS % 0.6 % (0.0-5.0); HEMATOCRIT. 36.7 % (36.0-48.0); HEMOGLOBIN. 12.6 g/dL (12.0-16.0); MEAN CORPUSCULAR VOLUME 93.3 fL (81.0-99.0); MEAN PLATELET VOLUME 9.8 fl (7.4-10.4); MONOCYTES % 6.6 % (2.0-8.0); NEUTROPHILS % 84.2 % (40.0-76.0); PLATELET 276 x1000/uL (130-400); RED BLOOD CELL COUNT 3.93 mill/uL (4.2-5.4)
[2019-09-05 23:16] LABS: CHLORIDE 98 mEq/L (98-107)
[2019-09-05 23:17] LABS: CLARITY URINE CLOUDY (CLEAR); COLOR URINE YELLOW (YELLOW); KETONES URINE NEGATIVE (NEGATIVE); LEUKOCYTE ESTERASE URINE 1+ (NEGATIVE); NITRITE URINE NEGATIVE (NEGATIVE); OCCULT BLOOD URINE NEGATIVE (NEGATIVE); PROTEIN URINE NEGATIVE (NEGATIVE); SPECIFIC GRAVITY URINE 1.023 (1.005-1.030); UROBILINOGEN URINE 0.2 E.U./dL (0.2-1.0)
[2019-09-05 23:21] LABS: INR 1.1; PROTHROMBIN TIME 11.9 sec (9.6-11.0)
[2019-09-05 23:27] LABS: HCG SCREEN NEGATIVE
[2019-09-06] MEDS ORDERED: CLONIDINE 0.1MG TABLET PO PRN (01:00)
[2019-09-06] MEDS ORDERED: ACETAMINOPHEN 325MG TABLET PO PRN ×2 (01:00)
[2019-09-06] MEDS ORDERED: GUAIFENESIN 200MG/10ML SUGAR FREE UDC PO PRN (01:00)
[2019-09-06] MEDS ORDERED: ONDANSETRON HCL 4MG/2ML INJ IV PRN (01:00)
[2019-09-06] MEDS ORDERED: DIPHENHYDRAMINE 50MG/ML VIAL IV PRN (01:00)
[2019-09-06] MEDS ORDERED: SORBITOL 70% SOLN 30ML PO PRN (01:15)
[2019-09-06] MEDS: DEXT 5%/0.45% NACL 1000ML 1,000 ML IV SCH ×2 (01:38→21:00)
[2019-09-06] MEDS: CEFTRIAXONE 1 G PREMIX 50 ML IV SCH (03:10)
[2019-09-06 03:53] LABS: T4 FREE 1.11 ng/dL (0.76-1.46)
[2019-09-06] MEDS: AZITHROMYCIN 500 MG in DEXT 5% WATER 250 ML IV SCH (04:16)
[2019-09-06] MEDS: LACTULOSE 20G/30ML UDC PO SCH ×3 (06:00→22:00)
[2019-09-06] MEDS: LEVOTHYROXINE SODIUM 75MCG TABLET PO SCH (06:29)
[2019-09-06] MEDS: CARBAMAZEPINE 200MG TABLET PO SCH ×2 (09:00→23:12)
[2019-09-06] MEDS: ENOXAPARIN 40MG/0.4ML SYR SUBCUT SCH (09:11)
[2019-09-06] MEDS ORDERED: BISACODYL 10MG SUPP PR PRN (17:00)
[2019-09-06] MEDS ORDERED: SORBITOL 70% SOLN 30ML PO NR (17:17)
[2019-09-06 23:20] VITALS: BP 99/72
[2019-09-07] MEDS: LACTULOSE 20G/30ML UDC PO SCH ×3 (06:42→22:25)
[2019-09-07] MEDS: CEFTRIAXONE 1 G PREMIX 50 ML IV SCH (06:43)
[2019-09-07] MEDS: LEVOTHYROXINE SODIUM 75MCG TABLET PO SCH (06:43)
[2019-09-07] MEDS: AZITHROMYCIN 500 MG in DEXT 5% WATER 250 ML IV SCH (06:43)
[2019-09-07 07:53] VITALS: BP 135/75
[2019-09-07] MEDS: CARBAMAZEPINE 200MG TABLET PO SCH (09:00)
[2019-09-07] MEDS: DOCUSATE SODIUM SUGAR FREE 100MG/10ML UDC NG SCH (12:03)
[2019-09-07] MEDS: ENOXAPARIN 40MG/0.4ML SYR SUBCUT SCH (12:07)
[2019-09-07 12:11] VITALS: BP 108/53
[2019-09-07] MEDS: DEXT 5%/0.45% NACL 1000ML 1,000 ML IV SCH (12:12)
[2019-09-07 15:54] VITALS: BP 105/44
[2019-09-07] MEDS ORDERED: BISACODYL 5MG TABLET PO NR (18:00)
[2019-09-07] MEDS: METOCLOPRAMIDE HCL 10MG/2ML VIAL IV SCH (18:30)
[2019-09-07] MEDS: CARBAMAZEPINE 200MG/10ML UDC PO SCH (22:25)
[2019-09-08] VITALS: BP 120/69
[2019-09-08] MEDS: METOCLOPRAMIDE HCL 10MG/2ML VIAL IV SCH ×4 (00:37→18:13)
[2019-09-08] MEDS: CEFTRIAXONE 1 G PREMIX 50 ML IV SCH (02:59)
[2019-09-08 04:00] VITALS: BP 106/53
[2019-09-08] MEDS: AZITHROMYCIN 500 MG in DEXT 5% WATER 250 ML IV SCH (04:07)
[2019-09-08 05:50] LABS: BASOPHILS % 0.9 % (0.0-2.0); EOSINOPHILS % 0.2 % (0.0-5.0); HEMATOCRIT. 28.6 % (36.0-48.0); HEMOGLOBIN. 9.8 g/dL (12.0-16.0); LYMPHOCYTES % 12.6 % (20.0-50.0); MEAN CORPUSCULAR HEMOGLOBIN 32.3 pg (28.0-32.0); MEAN CORPUSCULAR VOLUME 93.8 fL (81.0-99.0); MONOCYTES % 6.7 % (2.0-8.0); NEUTROPHILS % 79.6 % (40.0-76.0); PLATELET 224 x1000/uL (130-400); RED BLOOD CELL COUNT 3.05 mill/uL (4.2-5.4); RED CELL DISTRIBUTION WIDTH 13.9 % (11.6-14.6)
[2019-09-08] MEDS: LACTULOSE 20G/30ML UDC PO SCH ×3 (06:00→22:24)
[2019-09-08] MEDS: LEVOTHYROXINE SODIUM 75MCG TABLET PO SCH (06:01)
[2019-09-08 06:08] LABS: CHLORIDE 105 mEq/L (98-107)
[2019-09-08 06:18] LABS: PHOSPHORUS 2.6 mg/dL (2.5-4.9)
[2019-09-08 07:57] VITALS: BP 97/52
[2019-09-08] MEDS: DOCUSATE SODIUM SUGAR FREE 100MG/10ML UDC NG SCH (09:06)
[2019-09-08] MEDS: CARBAMAZEPINE 200MG/10ML UDC PO SCH ×2 (09:07→20:56)
[2019-09-08] MEDS: ENOXAPARIN 40MG/0.4ML SYR SUBCUT SCH (09:07)
[2019-09-08 11:53] VITALS: BP 88/51
[2019-09-08] MEDS: DEXT 5%/0.45% NACL 1000ML 1,000 ML IV SCH (12:45)
[2019-09-08] MEDS ORDERED: POTASSIUM CHLORIDE INJ 40 MEQ in DEXT 5% WATER 250 ML IV SCH (14:00)
[2019-09-08 16:55] VITALS: BP 100/53
[2019-09-08] MEDS ORDERED: BISACODYL 5MG TABLET PO NR (17:15)
[2019-09-08] MEDS ORDERED: BISA10SU62 RC (18:09)
[2019-09-08] MEDS ORDERED: DOCU-138 MT (18:09)
[2019-09-08] MEDS ORDERED: OMEP20TA15 MT (18:09)
[2019-09-08] MEDS ORDERED: WARF2.5T83 MT (18:09)
[2019-09-08] MEDS ORDERED: CALC-3 MT (18:09)
[2019-09-08] MEDS ORDERED: MINERAL OIL ENEMA 133ML PR NR (18:30)
[2019-09-08 20:00] VITALS: BP 100/63
[2019-09-09] VITALS: BP 100/50
[2019-09-09] MEDS: METOCLOPRAMIDE HCL 10MG/2ML VIAL IV SCH ×4 (00:23→17:19)
[2019-09-09 04:00] VITALS: BP 100/52
[2019-09-09] MEDS: AZITHROMYCIN 500 MG in DEXT 5% WATER 250 ML IV SCH (05:15)
[2019-09-09] MEDS: CEFTRIAXONE 1 G PREMIX 50 ML IV SCH (05:22)
[2019-09-09] MEDS: LACTULOSE 20G/30ML UDC PO SCH ×3 (06:18→21:08)
[2019-09-09 08:00] VITALS: BP 115/75
[2019-09-09] MEDS: DOCUSATE SODIUM SUGAR FREE 100MG/10ML UDC NG SCH ×2 (08:27→17:19)
[2019-09-09] MEDS: LEVOTHYROXINE SODIUM 75MCG TABLET PO SCH (08:27)
[2019-09-09] MEDS: CARBAMAZEPINE 200MG/10ML UDC PO SCH ×2 (08:28→21:08)
[2019-09-09] MEDS: ENOXAPARIN 30MG/0.3ML SYR SUBCUT SCH (08:28)
[2019-09-09] MEDS: DEXT 5%/0.45% NACL 1000ML 1,000 ML IV SCH ×2 (08:39→20:15)
[2019-09-09] MEDS ORDERED: POTASSIUM CHLORIDE 20MEQ TABLET SR PO SCH (09:00)
[2019-09-09] MEDS ORDERED: POTASSIUM CHLORIDE INJ 40 MEQ in DEXT 5% WATER 250 ML IV SCH (10:00)
[2019-09-09 12:00] VITALS: BP 112/75
[2019-09-09 16:03] VITALS: BP 111/71
[2019-09-09 20:06] VITALS: BP 123/78
[2019-09-10 00:41] VITALS: BP 119/89
[2019-09-10] MEDS: METOCLOPRAMIDE HCL 10MG/2ML VIAL IV SCH ×4 (00:52→17:02)
[2019-09-10] MEDS: CEFTRIAXONE 1 G PREMIX 50 ML IV SCH (04:00)
[2019-09-10] MEDS: DEXT 5%/0.45% NACL 1000ML 1,000 ML IV SCH ×3 (04:01→19:15)
[2019-09-10] MEDS: AZITHROMYCIN 500 MG in DEXT 5% WATER 250 ML IV SCH (04:10)
[2019-09-10 04:50] VITALS: BP 120/89
[2019-09-10 06:00] LABS: CHLORIDE 108 mEq/L (98-107)
[2019-09-10 06:01] LABS: HEMATOCRIT. 37.2 % (36.0-48.0); HEMOGLOBIN. 12.6 g/dL (12.0-16.0); MEAN CORPUSCULAR HEMOGLOBIN 31.9 pg (28.0-32.0); MEAN CORPUSCULAR VOLUME 94.4 fL (81.0-99.0); MEAN PLATELET VOLUME 8.9 fl (7.4-10.4); PLATELET 387 x1000/uL (130-400); RED BLOOD CELL COUNT 3.94 mill/uL (4.2-5.4); RED CELL DISTRIBUTION WIDTH 13.8 % (11.6-14.6)
[2019-09-10] MEDS: LEVOTHYROXINE SODIUM 75MCG TABLET PO SCH (06:44)
[2019-09-10] MEDS: LACTULOSE 20G/30ML UDC PO SCH (06:44)
[2019-09-10 08:00] VITALS: BP 108/63
[2019-09-10] MEDS: CARBAMAZEPINE 200MG/10ML UDC PO SCH ×2 (08:55→21:13)
[2019-09-10] MEDS: ENOXAPARIN 30MG/0.3ML SYR SUBCUT SCH (08:55)
[2019-09-10] MEDS: DOCUSATE SODIUM SUGAR FREE 100MG/10ML UDC NG SCH ×2 (08:55→17:00)
[2019-09-10] MEDS: SORBITOL 70% SOLN 30ML PO SCH ×2 (09:01→17:00)
[2019-09-10 12:00] VITALS: BP 105/65
[2019-09-10 14:35] LABS: PLATELET ESTIMATE NORMAL
[2019-09-10 16:00] VITALS: BP 97/56
[2019-09-10 20:00] VITALS: BP 112/61
[2019-09-11] VITALS: BP 105/52
[2019-09-11] MEDS: METOCLOPRAMIDE HCL 10MG/2ML VIAL IV SCH ×4 (00:14→18:10)
[2019-09-11] MEDS: DEXT 5%/0.45% NACL 1000ML 1,000 ML IV SCH ×3 (03:08→19:15)
[2019-09-11] MEDS: AZITHROMYCIN 500 MG in DEXT 5% WATER 250 ML IV SCH (03:08)
[2019-09-11] MEDS: CEFTRIAXONE 1 G PREMIX 50 ML IV SCH (03:08)
[2019-09-11 04:00] VITALS: BP 118/65
[2019-09-11] MEDS: LEVOTHYROXINE SODIUM 75MCG TABLET PO SCH (07:19)
[2019-09-11 08:00] VITALS: BP 105/52
[2019-09-11] MEDS: SORBITOL 70% SOLN 30ML PO SCH ×2 (09:15→18:09)
[2019-09-11] MEDS: CARBAMAZEPINE 200MG/10ML UDC PO SCH ×2 (09:16→21:22)
[2019-09-11] MEDS: ENOXAPARIN 30MG/0.3ML SYR SUBCUT SCH (09:16)
[2019-09-11] MEDS: DOCUSATE SODIUM SUGAR FREE 100MG/10ML UDC NG SCH ×2 (09:17→17:00)
[2019-09-11] MEDS: BISACODYL 10MG SUPP PR PRN (10:53)
[2019-09-11 12:00] VITALS: BP 103/53
[2019-09-11] MEDS ORDERED: VANCOMYCIN 1 G PREMIX 200 ML IV SCH (13:00)
[2019-09-11 16:00] VITALS: BP 120/63
[2019-09-11 20:29] VITALS: BP 91/50
[2019-09-11] MEDS: DEXT 5% IV SCH (21:54)
[2019-09-11] MEDS: WATER IV SCH (21:54)
[2019-09-11] MEDS: VANCOMYCIN IV SCH (21:54)
[2019-09-12] MEDS: METOCLOPRAMIDE HCL 10MG/2ML VIAL IV SCH ×4 (00:18→18:12)
[2019-09-12 00:50] VITALS: BP 112/65
[2019-09-12] MEDS: DEXT 5%/0.45% NACL 1000ML 1,000 ML IV SCH ×2 (03:15→12:52)
[2019-09-12 04:00] VITALS: BP 100/63
[2019-09-12] MEDS: LEVOTHYROXINE SODIUM 75MCG TABLET PO SCH (06:25)
[2019-09-12] MEDS: VANCOMYCIN IV SCH ×3 (06:26→21:27)
[2019-09-12] MEDS: WATER IV SCH ×3 (06:26→21:27)
[2019-09-12] MEDS: DEXT 5% IV SCH ×3 (06:26→21:27)
[2019-09-12 07:56] VITALS: BP 102/63
[2019-09-12] MEDS: ENOXAPARIN 30MG/0.3ML SYR SUBCUT SCH (08:42)
[2019-09-12] MEDS: CARBAMAZEPINE 200MG/10ML UDC PO SCH ×2 (08:43→21:14)
[2019-09-12] MEDS: DOCUSATE SODIUM SUGAR FREE 100MG/10ML UDC NG SCH ×2 (08:43→18:09)
[2019-09-12 10:04] LABS: CHLORIDE 106 mEq/L (98-107)
[2019-09-12] MEDS ORDERED: POTASSIUM CHLORIDE INJ 40 MEQ in DEXT 5% WATER 250 ML IV SCH (12:00)
[2019-09-12 12:22] VITALS: BP 101/61
[2019-09-12 15:53] VITALS: BP 91/60
[2019-09-12] MEDS: DEXT 5%/0.45% NACL KCL 40MEQ/L 1,000 ML IV SCH (18:06)
[2019-09-12 19:59] VITALS: BP 96/58
[2019-09-13 00:30] VITALS: BP 96/60
[2019-09-13] MEDS: METOCLOPRAMIDE HCL 10MG/2ML VIAL IV SCH ×5 (00:57→22:39)
[2019-09-13] MEDS: DEXT 5%/0.45% NACL KCL 40MEQ/L 1,000 ML IV SCH ×3 (01:02→19:59)
[2019-09-13 04:00] VITALS: BP 99/66
[2019-09-13] MEDS: WATER IV SCH (05:35)
[2019-09-13] MEDS: DEXT 5% IV SCH (05:35)
[2019-09-13] MEDS: VANCOMYCIN IV SCH (05:35)
[2019-09-13 06:56] LABS: BASOPHILS % 1.2 % (0.0-2.0); EOSINOPHILS % 1.7 % (0.0-5.0); HEMOGLOBIN. 9.2 g/dL (12.0-16.0); LYMPHOCYTES % 16.3 % (20.0-50.0); MEAN CORPUSCULAR VOLUME 93.6 fL (81.0-99.0); MEAN PLATELET VOLUME 7.5 fl (7.4-10.4); MONOCYTES % 8.6 % (2.0-8.0); NEUTROPHILS % 72.2 % (40.0-76.0); PLATELET 268 x1000/uL (130-400); RED BLOOD CELL COUNT 2.78 mill/uL (4.2-5.4); RED CELL DISTRIBUTION WIDTH 13.5 % (11.6-14.6)
[2019-09-13 07:08] LABS: CHLORIDE 109 mEq/L (98-107)
[2019-09-13 07:16] LABS: PHOSPHORUS 2.6 mg/dL (2.5-4.9)
[2019-09-13 07:19] LABS: VANCOMYCIN TROUGH 16.2 ug/mL (5.0-10.0)
[2019-09-13] MEDS: LEVOTHYROXINE SODIUM 75MCG TABLET PO SCH (07:47)
[2019-09-13 08:00] VITALS: BP 107/69
[2019-09-13] MEDS: ENOXAPARIN 30MG/0.3ML SYR SUBCUT SCH (09:22)
[2019-09-13] MEDS: CARBAMAZEPINE 200MG/10ML UDC PO SCH ×2 (09:22→19:58)
[2019-09-13] MEDS: DOCUSATE SODIUM SUGAR FREE 100MG/10ML UDC NG SCH ×2 (09:22→16:44)
[2019-09-13] MEDS: BISACODYL 10MG SUPP PR PRN (11:33)
[2019-09-13 12:00] VITALS: BP 96/63
[2019-09-13] MEDS ORDERED: MINERAL OIL ENEMA 133ML PR NR (14:30)
[2019-09-13 16:00] VITALS: BP 98/64
[2019-09-13 20:50] VITALS: BP 97/59
[2019-09-14] VITALS (7 sets, daily range): BP systolic 91–144; BP diastolic 36–67
[2019-09-14] MEDS: METOCLOPRAMIDE HCL 10MG/2ML VIAL IV SCH ×4 (04:06→23:35)
[2019-09-14] MEDS: LEVOTHYROXINE SODIUM 75MCG TABLET PO SCH (04:07)
[2019-09-14] MEDS: DEXT 5%/0.45% NACL KCL 40MEQ/L 1,000 ML IV SCH ×2 (06:30→16:13)
[2019-09-14] MEDS: DOCUSATE SODIUM SUGAR FREE 100MG/10ML UDC NG SCH ×2 (08:22→16:13)
[2019-09-14] MEDS: ENOXAPARIN 30MG/0.3ML SYR SUBCUT SCH (08:23)
[2019-09-14] MEDS: CARBAMAZEPINE 200MG/10ML UDC PO SCH ×2 (08:23→21:47)
[2019-09-15] VITALS: BP 93/59
[2019-09-15] MEDS: DEXT 5%/0.45% NACL KCL 40MEQ/L 1,000 ML IV SCH ×2 (02:45→12:30)
[2019-09-15 04:50] VITALS: BP 109/67
[2019-09-15] MEDS: METOCLOPRAMIDE HCL 10MG/2ML VIAL IV SCH ×3 (06:45→19:05)
[2019-09-15] MEDS: LEVOTHYROXINE SODIUM 75MCG TABLET PO SCH (06:45)
[2019-09-15 08:00] VITALS: BP 108/65
[2019-09-15] MEDS: CARBAMAZEPINE 200MG/10ML UDC PO SCH (08:51)
[2019-09-15] MEDS: ENOXAPARIN 30MG/0.3ML SYR SUBCUT SCH (08:51)
[2019-09-15] MEDS: DOCUSATE SODIUM SUGAR FREE 100MG/10ML UDC NG SCH ×2 (08:52→19:07)
[2019-09-15 17:22] VITALS: BP 93/59
== END 2019-09-15 21:00 | DRG 247 ==
LOC: ER 20:32 → MICUSO 23:17 → EDBEDREQ 23:29 → EDBEDREQSVC 23:29 → EDBEDREQTM 23:29 → 6WST 09-06 23:30
PROVIDERS: ADMIT Internal Medicine; ATTEND Internal Medicine
DX: K56.41 Fecal impaction (principal); J18.9 Pneumonia, unspecified organism; E46 Unspecified protein-calorie malnutrition; G80.9 Cerebral palsy, unspecified; G40.909 Epilepsy, unspecified, not intractable, without status epilepticus; E03.9 Hypothyroidism, unspecified; E87.1 Hypo-osmolality and hyponatremia; Z20.828 Contact with and (suspected) exposure to other viral communicable diseases; E87.6 Hypokalemia; Z86.718 Personal history of other venous thrombosis and embolism; Z68.1 Body mass index [BMI] 19.9 or less, adult; Z95.828 Presence of other vascular implants and grafts
CPT/HCPCS: 36415; 36600; 71045; 74018; 80048; 80051; 80053; 80202; 81003; 82270; 82375; 82805; 83605; 83735; 84100; 84145; 84439; 84443; 84484; 84703; 85025; 92610; 93005; 96365; 99291; J0456; J0696; J1650; J2405; J2543; J2765; J3370; J3480; J7030; J7060; U0003-CS

== ENCOUNTER 2022-12-30 18:08 | Inpatient (IN) | payer MEDICAID ==
[~2022-12-30] VITALS: Ht 157.5 cm; Wt 39.9 kg
[~2022-12-30 18:08] MED LIST changes: +BISA10SU62 RC; +CALC-3 MT; -D-ME473S8 MT; -DIPH25CA83 PO; +DOCU-138 MT; -DOCU-150; -LEVO75TA7; -MOM MT; +OMEP20TA15 MT; -TOPUD PO; +WARF2.5T83 MT; -WARF6TAB22 PO
[2022-12-30] MEDS ORDERED: ONDANSETRON HCL 4MG/2ML INJ IV STA (18:36)
[2022-12-30] MEDS ORDERED: MORPHINE SULFATE 4 MG/ML CPJ (NOT FOR IM USE) IV STA (18:36)
[2022-12-30] MEDS ORDERED: SODIUM CHLORIDE 0.9% 1,000 ML IV ONE (18:45)
[2022-12-30] MEDS ORDERED: LORAZEPAM 2MG/ML CPJ IM ONE (18:45)
[2022-12-30 19:12] LABS: EOSINOPHILS % 2.4 % (0.0-5.0); HEMATOCRIT. 24.4 % (36.0-48.0); HEMOGLOBIN. 7.8 g/dL (12.0-16.0); LYMPHOCYTES % 34.3 % (20.0-50.0); MEAN CORPUSCULAR HGB CONC 32.2 g/dL (31.0-37.0); MEAN PLATELET VOLUME 7.7 fl (7.4-10.4); MONOCYTES % 10.8 % (2.0-8.0); NEUTROPHILS % 51.5 % (40.0-76.0); PLATELET 309 x1000/uL (130-400); WHITE BLOOD COUNT 4.4 x1000/uL (4.5-11.0)
[2022-12-30 19:25] LABS: CHLORIDE 108 mEq/L (98-107); INDEX HEMOLYSI 1 (1-3); INDEX ICTERIC 1 (1-4); INDEX LIPEMIC 1 (1-3); POTASSIUM 3.9 mEq/L (3.5-5.1); SODIUM 141 mEq/L (136-145)
[2022-12-30 19:36] LABS: ALANINE AMINOTRANSFERASE 13 IU/L (13-61); ALBUMIN 2.4 g/dL (3.4-5.0); ASPARTATE AMINOTRANSFERASE 7 IU/L (15-37); BILIRUBIN TOTAL 0.1 mg/dL (0.1-1.0); CALCIUM 8.2 mg/dL (8.5-10.1); CARBON DIOXIDE 26 mEq/L (21-32); CREATININE 0.5 mg/dL (0.6-1.3); GLUCOSE 122 mg/dL (70-105); NT PRO B-TYPE NATRIURETIC PEP 24 pg/mL (5-125); PROTEIN TOTAL 5.8 g/dL (6.0-8.3); TROPONIN I HIGH SENSITIVITY 4 ng/L (<54); UREA NITROGEN BLOOD 28 mg/dL (7-21)
[2022-12-30 19:44] LABS: HCG SCREEN NEGATIVE
[2022-12-30] MEDS ORDERED: LORAZEPAM 2MG/ML CPJ IM NR (21:05)
[2022-12-30] MEDS ORDERED: MORPHINE SULFATE 4 MG/ML CPJ (NOT FOR IM USE) IV NR (21:06)
[2022-12-30] MEDS ORDERED: ONDANSETRON HCL 4MG/2ML INJ IV NR (21:07)
[2022-12-30] MEDS ORDERED: CEFTRIAXONE 1GM PREMIX 50 ML IV ONE (21:30)
[2022-12-30 22:34] LABS: INR 2.4; PARTIAL THROMBOPLASTIN TIME 47.6 sec (23.4-31.0); PROTHROMBIN TIME 24.5 sec (9.6-11.0)
[2022-12-30] MEDS: DEXT 5%/0.9% NACL 1,000 ML IV SCH (23:51)
[2022-12-30] MEDS: PANTOPRAZOLE SODIUM 40 MG/VIAL IV SCH (23:55)
[2022-12-31] MEDS ORDERED: KETOROLAC 30MG/ML VIAL IV PRN (00:15)
[2022-12-31 03:41] LABS: INR 1.9; PARTIAL THROMBOPLASTIN TIME 40.9 sec (23.4-31.0); PROTHROMBIN TIME 19.3 sec (9.6-11.0)
[2022-12-31 04:00] VITALS: BP 112/67; PULSE 106; RESP 19; TEMP 97.1
[2022-12-31 07:06] LABS: BASOPHILS % 0.9 % (0.0-2.0); EOSINOPHILS % 1.3 % (0.0-5.0); HEMATOCRIT. 23.3 % (36.0-48.0); HEMOGLOBIN. 7.6 g/dL (12.0-16.0); LYMPHOCYTES % 16.4 % (20.0-50.0); MEAN CORPUSCULAR HGB CONC 32.7 g/dL (31.0-37.0); MEAN CORPUSCULAR VOLUME 88.6 fL (81.0-99.0); MEAN PLATELET VOLUME 7.9 fl (7.4-10.4); MONOCYTES % 9.6 % (2.0-8.0); NEUTROPHILS % 71.8 % (40.0-76.0); PLATELET 311 x1000/uL (130-400); RED BLOOD CELL COUNT 2.63 mill/uL (4.2-5.4); WHITE BLOOD COUNT 5.5 x1000/uL (4.5-11.0)
[2022-12-31 07:41] LABS: CHLORIDE 110 mEq/L (98-107); INDEX HEMOLYSI 1 (1-3); INDEX ICTERIC 1 (1-4); INDEX LIPEMIC 1 (1-3); POTASSIUM 4.1 mEq/L (3.5-5.1); SODIUM 141 mEq/L (136-145)
[2022-12-31 08:00] VITALS: BP 99/51; PULSE 86; RESP 18; TEMP 97.7
[2022-12-31] MEDS ORDERED: ONDANSETRON HCL 4MG/2ML INJ IV PRN (08:00)
[2022-12-31 08:07] LABS: ALANINE AMINOTRANSFERASE 11 IU/L (13-61); ALBUMIN 2.2 g/dL (3.4-5.0); ASPARTATE AMINOTRANSFERASE 11 IU/L (15-37); BILIRUBIN TOTAL 0.2 mg/dL (0.1-1.0); CALCIUM 7.8 mg/dL (8.5-10.1); CARBON DIOXIDE 27 mEq/L (21-32); CREATININE 0.5 mg/dL (0.6-1.3); GLUCOSE 123 mg/dL (70-105); IRON 17 ug/dL (50-175); PROTEIN TOTAL 5.3 g/dL (6.0-8.3); T4 FREE 0.81 ng/dL (0.76-1.46); TOTAL IRON BINDING CAPACITY 236 ug/dL (250-450); UREA NITROGEN BLOOD 30 mg/dL (7-21)
[2022-12-31 10:36] LABS: VITAMIN B12 SERUM 1008 pg/mL (211-911)
[2022-12-31] MEDS ORDERED: NA PHOS,M-B/NA PHOS,DI-BA ENEMA 118ML PR NR (10:45)
[2022-12-31] MEDS ORDERED: KETOROLAC 15MG/ML VIAL IV PRN ×2 (10:45)
[2022-12-31 12:00] VITALS: BP 114/54; PULSE 104; RESP 18; TEMP 97.4
[2022-12-31] MEDS: CARBAMAZEPINE 200MG TABLET PO SCH ×2 (14:23→21:47)
[2022-12-31] MEDS: PANTOPRAZOLE SODIUM 40 MG/VIAL IV SCH ×2 (14:23→16:09)
[2022-12-31] MEDS ORDERED: SORBITOL 70% SOLN 30ML GT NR (15:00)
[2022-12-31 16:00] VITALS: BP 107/56; PULSE 100; RESP 20; TEMP 98.1
[2022-12-31] MEDS: DEXT 5%/0.9% NACL 1,000 ML IV SCH (16:03)
[2022-12-31 16:07] LABS: FOLIC ACID (FOLATE) SERUM > 20.00 ng/mL (>5.38)
[2022-12-31 16:20] LABS: FERRITIN 10 ng/mL (10-291)
[2022-12-31 20:00] VITALS: BP 116/54; PULSE 116; RESP 18; TEMP 97.7
[2022-12-31] MEDS ORDERED: DEXTROSE 50% WATER 50ML SYRINGE IV PRN (23:45)
[2022-12-31] MEDS: BLOOD SUGAR DIAGNOSTIC STRIP TEST SCH (23:45)
[2023-01-01] VITALS (11 sets, daily range): BP systolic 96–123; BP diastolic 50–74; PULSE 70–106; RESP 14–20; TEMP 96.9–98.3
[2023-01-01] MEDS: BLOOD SUGAR DIAGNOSTIC STRIP TEST SCH ×4 (05:45→23:45)
[2023-01-01 07:26] LABS: BASOPHILS % 0.8 % (0.0-2.0); DIFFERENTIAL COMMENT 0; EOSINOPHILS % 1.9 % (0.0-5.0); HEMATOCRIT. 21.1 % (36.0-48.0); LYMPHOCYTES % 22.3 % (20.0-50.0); MEAN CORPUSCULAR HEMOGLOBIN 29.2 pg (28.0-32.0); MEAN CORPUSCULAR HGB CONC 32.8 g/dL (31.0-37.0); MEAN CORPUSCULAR VOLUME 88.8 fL (81.0-99.0); MEAN PLATELET VOLUME 7.9 fl (7.4-10.4); MONOCYTES % 9.2 % (2.0-8.0); NEUTROPHILS % 65.8 % (40.0-76.0); PLATELET 311 x1000/uL (130-400); RED BLOOD CELL COUNT 2.38 mill/uL (4.2-5.4); RED CELL DISTRIBUTION WIDTH 16.3 % (11.6-14.6); WHITE BLOOD COUNT 5.3 x1000/uL (4.5-11.0)
[2023-01-01 07:35] LABS: INR 1.5; PROTHROMBIN TIME 15.5 sec (9.6-11.0)
[2023-01-01] MEDS: LEVOTHYROXINE SODIUM 75MCG TABLET PO SCH (08:01)
[2023-01-01 08:32] LABS: HEMOGLOBIN. 6.9 g/dL (12.0-16.0)
[2023-01-01] MEDS: DEXT 5%/0.9% NACL 1,000 ML IV SCH (08:56)
[2023-01-01] MEDS: PANTOPRAZOLE SODIUM 40 MG/VIAL IV SCH ×2 (08:56→15:49)
[2023-01-01] MEDS: CARBAMAZEPINE 200MG TABLET PO SCH ×2 (09:00→21:00)
[2023-01-01] MEDS ORDERED: NA PHOS,M-B/NA PHOS,DI-BA ENEMA 118ML PR NR ×2 (10:00→21:00)
[2023-01-01 10:10] LABS: CALCIUM 7.3 mg/dL (8.5-10.1); CHLORIDE 114 mEq/L (98-107); INDEX HEMOLYSI 1 (1-3); INDEX ICTERIC 1 (1-4); INDEX LIPEMIC 1 (1-3); POTASSIUM 3.4 mEq/L (3.5-5.1); SODIUM 143 mEq/L (136-145)
[2023-01-01 10:14] LABS: CARBON DIOXIDE 24 mEq/L (21-32); CREATININE 0.4 mg/dL (0.6-1.3); GLUCOSE 112 mg/dL (70-105); UREA NITROGEN BLOOD 22 mg/dL (7-21)
[2023-01-01] MEDS: IRON SUCROSE COMPLEX 100 MG/5 ML ML IV SCH (12:12)
[2023-01-01] MEDS ORDERED: ETOMIDATE 2MG/ML 10ML VIAL IV ONE ×2 (13:48→14:06)
[2023-01-01] MEDS ORDERED: DEXAMETHASONE 4MG/ML 1ML VIAL ONE (13:48)
[2023-01-01] MEDS ORDERED: ONDANSETRON HCL 4MG/2ML INJ ONE (13:48)
[2023-01-01] MEDS ORDERED: POTASSIUM CHLORIDE 20MEQ/PACKET NG NR (18:00)
[2023-01-01] MEDS ORDERED: SORBITOL 70% SOLN 30ML NG NR (21:00)
[2023-01-01 21:22] LABS: HEMATOCRIT 26.8 % (36.0-48.0); HEMOGLOBIN 8.7 g/dL (12.0-16.0)
[2023-01-02] VITALS (7 sets, daily range): BP systolic 85–123; BP diastolic 35–63; PULSE 81–95; RESP 16–18; TEMP 96.8–98.5; O2SAT 100
[2023-01-02] MEDS: DEXT 5%/0.9% NACL 1,000 ML IV SCH (01:09)
[2023-01-02] MEDS: BLOOD SUGAR DIAGNOSTIC STRIP TEST SCH ×2 (06:28→11:45)
[2023-01-02 08:09] LABS: IMMUNOGLOBULIN A 251 mg/dL (87-352); IMMUNOGLOBULIN G 682 mg/dL (586-1602)
[2023-01-02 08:14] LABS: CHLORIDE 114 mEq/L (98-107); INDEX HEMOLYSI 1 (1-3); INDEX ICTERIC 1 (1-4); INDEX LIPEMIC 1 (1-3); POTASSIUM 3.1 mEq/L (3.5-5.1); SODIUM 142 mEq/L (136-145)
[2023-01-02] MEDS: PANTOPRAZOLE SODIUM 40 MG/VIAL IV SCH (08:21)
[2023-01-02] MEDS: LEVOTHYROXINE SODIUM 75MCG TABLET PO SCH (08:22)
[2023-01-02] MEDS: CARBAMAZEPINE 200MG TABLET PO SCH (08:22)
[2023-01-02 08:23] LABS: BASOPHILS % 0.8 % (0.0-2.0); HEMATOCRIT. 26.3 % (36.0-48.0); HEMOGLOBIN. 8.8 g/dL (12.0-16.0); MEAN CORPUSCULAR HEMOGLOBIN 29.7 pg (28.0-32.0); MEAN CORPUSCULAR HGB CONC 33.4 g/dL (31.0-37.0); MEAN PLATELET VOLUME 8.1 fl (7.4-10.4); MONOCYTES % 11.8 % (2.0-8.0); NEUTROPHILS % 72.4 % (40.0-76.0); PLATELET 313 x1000/uL (130-400); RED BLOOD CELL COUNT 2.96 mill/uL (4.2-5.4); RED CELL DISTRIBUTION WIDTH 15.8 % (11.6-14.6); WHITE BLOOD COUNT 6.3 x1000/uL (4.5-11.0)
[2023-01-02 08:25] LABS: CALCIUM 7.4 mg/dL (8.5-10.1); CARBON DIOXIDE 25 mEq/L (21-32); CREATININE 0.4 mg/dL (0.6-1.3); GLUCOSE 120 mg/dL (70-105); UREA NITROGEN BLOOD 14 mg/dL (7-21)
[2023-01-02] MEDS ORDERED: POTASSIUM CHLORIDE 20MEQ/PACKET PO NR (09:00)
[2023-01-02] MEDS: IRON SUCROSE COMPLEX 100 MG/5 ML ML IV SCH (13:22)
== END 2023-01-02 18:38 | disposition home or self-care (01) | DRG 247 ==
LOC: ER 18:08 → 7WST 21:40 → EDBEDREQ 21:43
PROVIDERS: ADMIT Internal Medicine; ATTEND Internal Medicine
PROC: 0DB78ZX Excision of Stomach, Pylorus, Via Natural or Artificial Opening Endoscopic, Diagnostic (ICD-10-PCS; principal; 2023-01-01)
PROC: 30233N1 Transfusion of Nonautologous Red Blood Cells into Peripheral Vein, Percutaneous Approach (ICD-10-PCS; 2023-01-01)
DX: K56.41 Fecal impaction (principal); E43 Unspecified severe protein-calorie malnutrition; N17.9 Acute kidney failure, unspecified; R64 Cachexia; R18.8 Other ascites; D63.8 Anemia in other chronic diseases classified elsewhere; K56.7 Ileus, unspecified; E86.0 Dehydration; G40.909 Epilepsy, unspecified, not intractable, without status epilepticus; K80.20 Calculus of gallbladder without cholecystitis without obstruction; E03.9 Hypothyroidism, unspecified; D50.9 Iron deficiency anemia, unspecified; Z74.01 Bed confinement status; Z79.01 Long term (current) use of anticoagulants; Z79.899 Other long term (current) drug therapy; Z95.828 Presence of other vascular implants and grafts; Z86.718 Personal history of other venous thrombosis and embolism; Z68.1 Body mass index [BMI] 19.9 or less, adult
CPT/HCPCS: 36415; 71045; 74018; 74176; 80048; 80053; 82270; 82607; 82728; 82746; 82784; 82962; 83540; 83550; 83880; 84439; 84443; 84481; 84484; 84703; 85014; 85018; 85025; 85044; 85379; 86850; 86900; 86920; 88305; 88312; 88313; 93005; 99285; C9113; J0696; J1100; J1885; J2060; J2270; J2405; J3490; J7030; P9016; A4315